=== PATIENT | female | born 1980 ===

== ENCOUNTER 2019-12-05 16:04 | Emergency (ER) | payer BC, SELFPAY ==
[2019-12-05 16:17] VITALS: BP 170/101; PULSE 148; RESP 18; TEMP 37.1; O2SAT 99
--- NOTE | 2019-12-05 16:17 | ED.GENADULT ---
HPI - General Adult General Chief complaint: Recheck/Abnormal Lab/Rx Stated complaint: HPB Time Seen by Provider: 12/05/19 16:17 Source: patient and RN notes reviewed History of Present Illness HPI narrative: Patient is a 39-year-old female that presents the urgent care with complaints of high blood pressure and high pulse rate. Patient states that she was diagnosed just recently with hypertension and placed on HCTZ. Patient states that her brush maker machine put her on the medication and she has not followed up with her PCP since the high blood pressure. States that she was referred to a brush maker machine due to her upper respiratory symptoms and intermittent shortness of breath. Patient states that she feels she is always had a high pulse rate but is been more aware of it in the last week. Patient states that she has been off the HCTZ for approximately 5 to 6 days. States that she stopped the medication because it was making her feel foggy and dizzy as well as sick to her stomach. Patient thinks that her electrolytes were off . However, patient does admit to not having any follow-up blood work. Patient denies any shortness of breath or chest pain at this time. Denies any history of cardiac events or cardiac history. Patient appears to be extremely anxious. No other acute complaints. Patient read the plan of care. Related Data Allergies Allergy/AdvReac Type Severity Reaction Status Date / Time No Known Allergies Allergy Unverified 07/10/16 17:45 Review of Systems Review of Systems: Narrative: CONSTITUTIONAL: Denies fever, chills, or sweats. EYES: Denies visual changes, redness, or discharge. ENT: Denies rhinorrhea, congestion, sore throat, or otalgia. CARDIOVASCULAR: Denies chest pain. Reports of elevated pulse and blood pressure RESPIRATORY: Denies cough or dyspnea. GASTROINTESTINAL: Denies abdominal pain, nausea, vomiting, or diarrhea. GENITOURINARY: Denies dysuria or hematuria. SKIN: Denies rash or itching. MUSCULOSKELETAL: Denies back pain, joint pain, or myalgia. NEUROLOGIC: Denies headache, numbness, or weakness. All other systems reviewed are negative, except as documented in HPI. [facility] Family History Family History (Updated 04/23/14 @ 07:13 by DOCTOR UNKNOWN) Father Hypertension Social History Social History Smoking status: Never smoker Alcohol intake: current Comments At the time of my signature, I reviewed and agree with the nursing past medical, surgical, social, and family history. There is no relevant family history pertinent to the patient complaint. Exam Narrative: Exam Narrative: GENERAL: This is a well-nourished, well-developed patient, appears extremely anxious HEAD: normocephalic, atraumatic. EYES: PERRL. Sclera clear/white. Vision is grossly intact. EARS: External ears normal NOSE: External nose normal with no obvious nasal discharge, nares without redness, no rhinorrhea. THROAT: Mucous membranes moist, posterior pharynx clear. NECK: Neck supple CARDIOVASCULAR: Irregular, tachycardic RESPIRATORY: Clear to auscultation. Breath sounds equal bilaterally. No wheezes, rales, or rhonchi. SKIN: warm, intact with no suspicious lesions or rash, good texture and turgor. NEURO: awake, alert, and oriented to person, place and time. There were no obvious focal neurologic abnormalities. EXTREMITIES: No clubbing, cyanosis, or edema. Course Vital Signs Vital signs: Vital Signs Temperature 98.8 F 12/05/19 16:17 Pulse Rate 148 H 12/05/19 16:17 Respiratory Rate 18 12/05/19 16:17 Blood Pressure 170/101 H 12/05/19 16:17 Pulse Oximetry 99 12/05/19 16:17 Temperature 98.8 F 12/05/19 16:17 Pulse Rate 148 H 12/05/19 16:17 Respiratory Rate 18 12/05/19 16:17 Blood Pressure 170/101 H 12/05/19 16:17 Pulse Oximetry 99 12/05/19 16:17 Reviewed?patient is informed that they may have pre-hypertension or hypertension based on a blood pressure reading in the department. I recommend the
--- NOTE | 2019-12-05 16:36 | ECG_ITS ---
Measurements Intervals [place] Rate: 122 P: [place]: 0 QRS: 55 QRSD: 78 T: 66 QT: 312 QTc: 445 Interpretive Statements SINUS TACHYCARDIA RSR' IN V1 OR V2, CONSIDER RIGHT VENTRICULAR HYPERTROPHY OR RIGHT VCD ABNORMAL ECG Electronically Signed On 12-05-2019 16:54:54 CDT by Mateo Aldana D.O.
== END 2019-12-05 16:55 | disposition short-term general hospital (02) ==
PROVIDERS: Emergency Provider Nurse Practitioner Family; PCP Student in an Organized Health Care Education/Training Program
DX: I48.92 Unspecified atrial flutter (principal)
CPT/HCPCS: 93005; 99213; G0463

== ENCOUNTER 2019-12-05 16:58 | Emergency (ER) | payer BC, SELFPAY ==
[2019-12-05] VITALS (10 sets, daily range): BP systolic 131–177; BP diastolic 93–149; PULSE 87–135; RESP 16–23; TEMP 36.6–37; O2SAT 98–100
--- NOTE | ~2019-12-05 | XR_ITS ---
XR chest 1V portable 12/05/2019 18:03 INDICATION: Chest tightness PROCEDURE: 2 view chest COMPARISON: No prior FINDINGS: Fracture, dislocation or subluxation is not identified. The soft tissues appear within norm al limits. No foreign bodies are identified. IMPRESSION: 1: NO ACUTE BONE OR JOINT ABNORMALITY IDENTIFIED. Reviewed, dictated and finalized at location A.
--- NOTE | ~2019-12-05 | CT_ITS ---
EXAMINATION: CTA chest PE protocol DATE: 12/05/2019 18:56 CDT INDICATION: Chest pain and palpitations TECHNIQUE: Computed tomographic angiography (CTA) of the chest was performed with 100 mL Omnipaque-35 0 intravenous contrast. The dose-length product was 173.49 mGy-cm. Maximum intensity projection 3D-re constructions of the aorta and other arteries were constructed by the technologist on a separate work station. Automated exposure control and iterative reconstruction technique were employed. COMPARISON: Chest dated 12/05/2019 FINDINGS: Study is technically adequate without evidence for pulmonary embolism. No thoracic lymphade nopathy. No significant pleural or pericardial effusion. Heart size is normal. Status post cholecyste ctomy. No focal airspace consolidation. No pneumothorax. No endobronchial lesions. No suspicious pulm onary nodules or masses. Minimal apical pleural thickening/scarring. No acute bone or joint abnormali ty. IMPRESSION: 1. No evidence for pulmonary embolism. No acute cardiopulmonary disease. Reviewed, dictated and finalized at location A.
--- NOTE | 2019-12-05 17:22 | ECG_ITS ---
Measurements Intervals [place] Rate: 131 P: 69 [place]: 170 QRS: 50 QRSD: 73 T: 69 QT: 303 QTc: 448 Interpretive Statements SINUS TACHYCARDIA VOLTAGE CRITERIA FOR LVH MINIMAL Q WAVES- ANTEROLATERAL LEADS BORDERLINE ST ABNORMALITY- ANTEROLAT/INF LEADS ABNORMAL ECG Electronically Signed On 12-06-2019 7:41:41 CDT by Mateo Aldana D.O.
--- NOTE | 2019-12-05 17:31 | ED.ARRPALP ---
HPI - Arrhythmia/Palpitations General Chief Complaint: Arrhythmia/Palpitations Stated Complaint: irregular heart beat Time Seen by Provider: 12/05/19 17:06 Source: patient Mode of arrival: ambulatory Limitations: no limitations History of Present Illness HPI narrative: 39 yo female who presents from [facility] for evaluation of palpitations and tachycardia. PAtient states 2 weeks ago she was evaluated at urgent care of sinus symptoms and hypertension. She states she was started on HCTZ at that time and she reports she was also told she had elevated HR. She reports she stopped taking the HCTZ 5 days ago due to side effects of nausea and fatigue. She reports she has been feeling fine after stopping the medication until today. She reports today she is having dizziness, palpitation and intermittent chest tightness. She denies chest tightness now. She denies sob, fever, chills, vomiting or diarrhea. She does note 6 pound weight loss in past 2 weeks. Related Data Allergies Allergy/AdvReac Type Severity Reaction Status Date / Time Penicillins Allergy Hives Verified 12/05/19 17:11 Review of Systems Review of Systems: All systems reviewed & are unremarkable except as noted in HPI and below Constitutional: Constitutional: Denies chills, Reports fatigue and Denies fever(s) ENT: Reports dizziness Cardiovascular: Cardiovascular: Reports chest pain and Reports rapid heart rate Respiratory: Respiratory: Denies cough, Denies dyspnea and Denies wheezing Gastrointestinal: Gastrointestinal: Denies abdominal pain, Denies diarrhea, Reports nausea and Denies vomiting Musculoskeletal: Musculoskeletal: Denies back pain Neurologic: Reports dizziness PMFSH Past Medical History Medical History (Updated 12/05/19 @ 20:46 by Melida Hughes MD) Hypertension Surgical History Surgical History (Updated 12/05/19 @ 17:37 by Melida Hughes MD) Hx of cholecystectomy Family History Family History (Updated 04/23/14 @ 07:13 by DOCTOR UNKNOWN) Father Hypertension Social History Social History Smoking status: Never smoker Alcohol intake: current Gender identity (if verbalized by the patient): Female Exam Narrative: Exam Narrative: GENERAL: Well-appearing, well-nourished, and in no acute distress. HEAD: Normocephalic, atraumatic EYES: PERRLA and EOMI, conjunctiva clear without discharge THROAT:Mucous membranes moist, NECK: Supple, without lymphadenopathy or mass RESPIRATORY: No respiratory distress, Airway patent, Respirations non-labored, Clear to auscultation without rales, rhonchi or wheeze ABDOMEN: Soft, nontender, nondistended, normal active bowel sounds. No masses. No rebound or guarding, No organomegaly. EXTREMITIES: No edema, normal strength with full range of motion. SKIN: Warm, dry, normal color without rash NEURO: Alert and oriented x3. CN 2-12 grossly intact. No focal deficits. PSYCH: Normal mood and affect. Cardio: Rate: tachycardic Rhythm: regular rhythm Heart sounds: no murmurs Course Reevaluation(s) Reevaluation #1: I Discussed with patient that labs were unremarkable other than hypokalemia. She has been given 2 L IVF and oral potassium. Her HR has improved to 100 with metoprolol. I have discussed with patient that she will be discharged home with metoprolol and she is to follow up with PCP next week and compensation expert. I discussed she may need echo or holter monitor. Date: 12/05/19 Time: 20:40 Vital Signs Vital signs: Vital Signs Temperature 98.6 F 12/05/19 17:02 Pulse Rate 135 H 12/05/19 17:02 Respiratory Rate 20 12/05/19 17:02 Blood Pressure 177/98 H 12/05/19 17:02 Pulse Oximetry 100 12/05/19 17:02 Temperature 97.8 F 12/05/19 21:08 Pulse Rate 87 12/05/19 21:08 Respiratory Rate 18 12/05/19 21:08 Blood Pressure 131/93 H 12/05/19 21:08 Pulse Oximetry 99 12/05/19 21:08 MDM - Arrhythmia/Palpitations Differential Diagnosis Dif
[2019-12-05 17:35] LABS: Alveolar/Arterial O2 Gradient 13.1 mmHg; Base Excess ABG -1.2 mEq/l (+/-2.0); Carboxyhemoglobin 0.5 % THb (0-2.0); Fractional Inspired Oxygen 21 %; HCO3 ABG 22.1 mEq/l (22.0-26.0); Methemoglobin ABG 0.3 %THb (0-1.5); Oxygen Content ABG 20.9 %vol (16.0-22.0); Oxygen Saturation ABG 97.7 % (95.0-100.0); Oxyhemoglobin 96.3 % THb (90.0-100.0); PCO2 ABG 33.1 mmHg (35.0-45.0); PO2 FiO2 Ratio Arterial Blood 4.62 %; Reduced Hemoglobin 2.9 %THb (0-5.0); Total Hemoglobin 15.4 g/dL (12.0-18.0); pH ABG 7.442 (7.350-7.450)
[2019-12-05 17:36] LABS: Device ROOM AIR; Site Drawn LEFT BRACHIAL
[2019-12-05] MEDS: LACTATED RINGERS 1,000 ML 999 ML IV CONT ×2 (17:42→18:36)
[2019-12-05 17:52] LABS: Basophils Percent Auto 0.3 % (0.2-1.2); Hemoglobin 15.2 g/dL (12.0-15.0); Immature Granulocyte Absolute 0.04 K/mm3 (0.00-0.031); Immature Granulocyte Percent A 0.5 % (0-0.5); Lymphocytes Absolute Auto 1.09 K/mm3 (0.9-3.2); Lymphocytes Percent Auto 12.6 % (18.3-44.2); Mean Corpuscular HGB Conc 33.8 g/dl (32-36); Mean Corpuscular Hemoglobin 30.2 pg (26-34); Mean Corpuscular Volume 89.3 fl (80-100); Mean Platelet Volume 10.4 fl (7.4-10.4); Monocytes Absolute Auto 0.6 K/mm3 (0.1-0.6); Monocytes Percent Auto 6.3 % (2.6-8.5); Neutrophils Percent Auto 80.3 % (45.5-73.1); Platelet Count Result 246 k/mm3 (150-375); Red Blood Count 5.04 M/mm3 (4.2-5.4); Red Cell Distribution Width 11.9 % (11.5-14.5); White Blood Count 8.7 K/mm3 (4.5-10.0)
[2019-12-05 18:02] LABS: Lactic Acid Reflex 1.9 mmol/L (0.7-2.1)
[2019-12-05 18:04] LABS: Alanine Aminotransferase 31 U/L (4-35); Albumin Level 4.7 g/dL (3.5-5.1); Alkaline Phosphatase 83 U/L (38-126); Aspartate Amino Transferase 29 U/L (14-36); Bilirubin,Total 0.5 mg/dL (0.2-1.3); Blood Urea Nitrogen 6 mg/dL (7-17); Calcium 9.2 mg/dL (8.4-10.2); Carbon Dioxide 22 mmol/L (22-30); Chloride 105 mmol/L (98-107); Estimated CRCL calculation 119 ml/min; Estimated Glomerular Filt Rate > 60; Glucose 139 mg/dL (65-105); Potassium 3.1 mmol/L (3.4-5.0); Sodium 137 mmol/L (137-145)
[2019-12-05 18:15] LABS: Prothrombin Time 12.9 Seconds (11.1-14.7)
[2019-12-05 18:15] LABS: Troponin I < 0.012 ng/mL (0.000-0.034)
[2019-12-05] MEDS: POTASSIUM CHLORIDE 20 MEQ TABLET 40 MEQ PO (18:25)
[2019-12-05 18:37] LABS: Thyroid Stimulating Hormone Reflex 0.651 uIU/mL (0.465-4.68)
[2019-12-05 18:50] LABS: Amphetamine Screen Urine Negative (Negative); Barbiturate Screen Urine Negative (Negative); Benzodiazepines Screen Urine Negative (Negative); Cannabinoid Screen Urine Negative (Negative); Cocaine Screen Urine Negative (Negative); Methadone Screen Urine Negative (Negative); Opiate Screen Urine Negative (Negative); Phencyclidine Screen Urine Negative (Negative)
--- NOTE | 2019-12-05 19:24 | PC.NURSE ---
Bedside report to VALENCIA Mejia, to continue care.
[2019-12-05] MEDS: METOPROLOL TARTRATE INJ 5 MG/5 ML VIAL IV PUSH (19:30)
--- NOTE | 2019-12-05 20:07 | PC.NURSE ---
Per KARLI Hughes, hold second dose of Lopressor 5mg IVP.
[2019-12-05] MEDS: METOPROLOL TARTRATE 25 MG TABLET PO (20:16)
== END 2019-12-05 21:10 | disposition home or self-care (01) ==
PROVIDERS: Emergency Provider General Practice; PCP Student in an Organized Health Care Education/Training Program
DX: R00.0 Tachycardia, unspecified (principal); E87.6 Hypokalemia; R00.2 Palpitations; R94.31 Abnormal electrocardiogram [ECG] [EKG]
CPT/HCPCS: 36415; 36600; 71045; 71275; 80053; 80307; 81025; 82375; 82805; 83050; 83605; 83735; 84443; 84484; 85025; 85610; 85730; 93005; 96361; 96374; 96375; 96376; 99284; A9270; J0131; J7120; Q9967

== ENCOUNTER 2020-01-22 14:10 | Outpatient (CLI) | payer BC, SELFPAY ==
[2020-01-22 14:25] LABS: Basophils Absolute Auto 0.1 K/mm3 (0.0-0.1); Basophils Percent Auto 0.6 % (0.2-1.2); Eosinophils Absolute Auto 0.1 K/mm3 (0-0.3); Eosinophils Percent Auto 1.1 % (0-4.4); Hematocrit 45.3 % (37.0-47.0); Hemoglobin 15.2 g/dL (12.0-15.0); Immature Granulocyte Absolute 0.02 K/mm3 (0.00-0.031); Immature Granulocyte Percent A 0.2 % (0-0.5); Lymphocytes Absolute Auto 1.37 K/mm3 (0.9-3.2); Lymphocytes Percent Auto 16.7 % (18.3-44.2); Mean Corpuscular HGB Conc 33.6 g/dl (32-36); Mean Corpuscular Volume 92.3 fl (80-100); Mean Platelet Volume 10.5 fl (7.4-10.4); Monocytes Absolute Auto 0.7 K/mm3 (0.1-0.6); Monocytes Percent Auto 8.8 % (2.6-8.5); Neutrophils Absolute Auto 5.9 K/mm3 (1.3-6.7); Neutrophils Percent Auto 72.6 % (45.5-73.1); Platelet Count Result 274 k/mm3 (150-375); Red Blood Count 4.91 M/mm3 (4.2-5.4); Red Cell Distribution Width 12.4 % (11.5-14.5); White Blood Count 8.2 K/mm3 (4.5-10.0)
[2020-01-26 12:08] LABS: Reference Lab Test Result None detected
== END 2020-01-22 14:11 | disposition home or self-care (01) ==
LOC: ANHLAB 14:11
PROVIDERS: PCP Student in an Organized Health Care Education/Training Program; Visit Provider Internal Medicine Hematology & Oncology
DX: D75.1 Secondary polycythemia (principal)
CPT/HCPCS: 36415; 82375; 85025

== ENCOUNTER 2020-09-30 08:13 | Outpatient (CLI) | payer BC, SELFPAY ==
--- NOTE | ~2020-09-30 | MM_ITS ---
EXAMINATION: MM screening [facility] BI w mahendra HISTORY: Screening mammogram TECHNIQUE: Craniocaudal and mediolateral oblique 3-D tomosynthesis images were obtained and synthetic 2-D images were generated. CAD analysis was submitted and interpreted. COMPARISON: None, baseline BREAST PARENCHYMAL COMPOSITION: The breasts are heterogeneously dense, which may obscure small masses . FINDINGS: RIGHT BREAST: There is a possible mass in the middle third of the outer right breast best appreciated on the mediolateral oblique view. LEFT BREAST: There is no evidence of suspicious mass, calcification, or architectural distortion to s uggest malignancy. IMPRESSION: 1. Possible right breast mass. 2. Additional mammographic views and possible breast ultrasound are recommended to evaluate for malig gorge and establish a baseline given that this is the first mammographic examination. BI-RADS Category 0: Incomplete: Needs additional imaging evaluation. Reviewed, dictated and finalized at location A. DRAGGER IMPRESSION: 1. Possible right breast mass. 2. Additional mammographic views and possible breast ultrasound are recommended to evaluate for malignancy and establish a baseline given that this is the fir st mammographic examination. BI-RADS Category 0: Incomplete: Needs additional imaging evaluation.
== END 2020-09-30 08:14 | disposition home or self-care (01) ==
LOC: ANHIMG 08:17
PROVIDERS: PCP Student in an Organized Health Care Education/Training Program; Visit Provider Obstetrics & Gynecology
DX: Z12.31 Encounter for screening mammogram for malignant neoplasm of breast (principal); R92.8 Other abnormal and inconclusive findings on diagnostic imaging of breast
CPT/HCPCS: 77063; 77067

== ENCOUNTER 2020-10-07 11:12 | Outpatient (CLI) | payer BC, SELFPAY ==
--- NOTE | ~2020-10-07 | MMUS_ITS ---
EXAMINATION: MM diagnostic mammo unilat RT, US breast RT complete HISTORY: Possible right breast mass reported in middle third of outer right breast on screening mammo gram of 09/30/2020 TECHNIQUE: Additional 3-D tomosynthesis images of the right breast were performed and synthetic 2-D i mages were generated. CAD analysis was submitted and interpreted. High resolution complete right bijan st ultrasound was performed. COMPARISON: 09/30/2020 bilateral digital screening mammogram FINDINGS: MAMMOGRAPHIC FINDINGS: Dense heterogeneous stroma may obscure masses. A mass is not definitively confirmed or excluded. Ultr asound examination of the complete right breast was therefore performed. ULTRASOUND: At 7:00 7 cm from the nipple there is a 17.9 x 9.3 x 11.5 mm sonolucency with through transmission an d posterior enhancement consistent with simple cysts. No suspicious mass or shadowing or other significant sonographic finding of the right breast is evide nt. IMPRESSION: 1. 17.9 x 9.3 x 11.5 mm 7:00 7 cm from nipple right breast cyst 2. No mammographic evidence of malignancy BI-RADS Category 2: Benign finding Recommendation: Routine mammographic screening Reviewed, dictated and finalized at location A. E SUGAR SUPERVISOR IMPRESSION: 1. 17.9 x 9.3 x 11.5 mm 7:00 7 cm from nipple right breast cyst 2. No mammographic evidence of malignancy BI-RADS Category 2: Benign finding Recommendation: Routine mammographic screening
== END 2020-10-07 11:13 | disposition home or self-care (01) ==
LOC: ANHIMG 11:14
PROVIDERS: PCP Student in an Organized Health Care Education/Training Program; Visit Provider Obstetrics & Gynecology
DX: N60.01 Solitary cyst of right breast (principal)
CPT/HCPCS: 76641; 77065

== ENCOUNTER 2021-11-16 08:23 | Outpatient (CLI) | payer OTHER, SELFPAY ==
--- NOTE | ~2021-11-16 | MM_ITS ---
EXAMINATION: MM screening [place] BI w mahendra HISTORY: Screening mammogram TECHNIQUE: Craniocaudal and mediolateral oblique 3-D tomosynthesis images were obtained and synthetic 2-D images were generated. CAD analysis was submitted and interpreted. COMPARISON: October 07, 2020 diagnostic right mammogram and complete right breast ultrasound September 30, 2020 bilateral screening mammogram BREAST PARENCHYMAL COMPOSITION: The breasts are extremely dense, which lowers the sensitivity of mamm ography. FINDINGS: There is no evidence of suspicious mass, calcification, or architectural distortion to sugg est malignancy in either breast. There has been no suspicious interval change. IMPRESSION: 1. No mammographic evidence of malignancy. Extremely dense stroma reduces the sensitivity of the mamm ogram examination. 2. Recommend routine screening mammography in one year. BI-RADS Category 1: Negative Reviewed, dictated and finalized at location A. IMPRESSION: 1. No mammographic evidence of malignancy. Extremely dense stroma reduces the s ensitivity of the mammogram examination. 2. Recommend routine screening mammography in one year. BI-RADS Category 1: Negative
== END 2021-11-16 08:24 | disposition home or self-care (01) ==
LOC: ANHIMG 08:25
PROVIDERS: PCP Student in an Organized Health Care Education/Training Program; Visit Provider Obstetrics & Gynecology
DX: Z12.31 Encounter for screening mammogram for malignant neoplasm of breast (principal)
CPT/HCPCS: 77063; 77067

== ENCOUNTER 2023-01-08 08:03 | Outpatient (CLI) | payer OTHER, SELFPAY ==
--- NOTE | ~2023-01-08 | MM_ITS ---
EXAMINATION: MM screening [facility] BI w mahendra HISTORY: Screening mammogram TECHNIQUE: Craniocaudal and mediolateral oblique 3-D tomosynthesis images were obtained and synthetic 2-D images were generated. CAD analysis was submitted and interpreted. COMPARISON: 11/16/2021, 10/07/2020, 09/30/2020 BREAST PARENCHYMAL COMPOSITION: The breasts are extremely dense, which lowers the sensitivity of mamm ography. FINDINGS: A right breast cyst is again noted. No suspicious mass, calcification, or architectural dis tortion are identified in either breast to suggest malignancy. There has been no suspicious interval change. IMPRESSION: 1. No mammographic evidence of malignancy. 2. Recommend routine screening mammography in one year. BI-RADS Category 2: Benign finding(s). Reviewed, dictated and finalized at location A.
== END 2023-01-08 08:04 | disposition home or self-care (01) ==
LOC: ANHIMG 08:06
PROVIDERS: PCP Student in an Organized Health Care Education/Training Program; Visit Provider Obstetrics & Gynecology
DX: Z12.31 Encounter for screening mammogram for malignant neoplasm of breast (principal)
CPT/HCPCS: 77063; 77067